=== PATIENT | female | born 1965 | race Caucasian/White ===

== ENCOUNTER 2021-08-06 19:25 | Emergency (ER) | payer SELFPAY ==
[~2021-08-06] VITALS: Ht 160 cm; Wt 54.4 kg
[2021-08-06] MEDS ORDERED: diphenhydrAMINE HCL 50 MG/ML VIAL ONE (19:52)
[2021-08-06] MEDS ORDERED: LORAZEPAM INJ 2 MG/ML VIAL ONE (19:53)
[2021-08-06] MEDS ORDERED: HALOPERIDOL LACTATE INJ 5 MG/ML VIAL ONE (19:53)
[2021-08-06] MEDS: diphenhydrAMINE HCL 50 MG/ML VIAL IM ONE (19:58)
[2021-08-06] MEDS: LORAZEPAM INJ 2 MG/ML VIAL IM ONE (19:58)
[2021-08-06] MEDS: HALOPERIDOL LACTATE INJ 5 MG/ML VIAL IM ONE (19:58)
--- NOTE | 2021-08-06 20:10 | NUR ---
PATIENT BIBRA 79 AND [employer] C/O BIZARRE BEHAVIOR. PATIENT WAS PEPPER SPRAYED AT RADHA. PATIETN IS A/O X 2-3, RR EVEN AND UNLABORED, NO SOB NOTED. 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 PATIENT NOT ANSWERING STAFF QUESTIONS AT THIS TIME.
--- NOTE | 2021-08-06 20:44 | NUR ---
NEGATIVE RESTORER AT BEDSIDE
[2021-08-06 20:51] LABS: BASOPHILS % (AUTO) 0.4 % (0.0-2.0); EOSINOPHILS % (AUTO) 0.9 % (0.0-6.0); HEMATOCRIT 37 % (33-45); HEMOGLOBIN 11.7 g/dL (11.5-14.8); LYMPHOCYTES # (AUTO) 1.4 K/uL (0.8-4.8); LYMPHOCYTES % (AUTO) 18.8 % (20.0-44.0); MEAN CORPUSCULAR HGB CONC 32 g/dl (31.0-36.0); MEAN CORPUSCULAR VOLUME 79 fL (82-100); MONOCYTES # (AUTO) 0.9 K/uL (0.1-1.30); MONOCYTES % (AUTO) 12.5 % (2.0-12.0); NEUTROPHILS # (AUTO) 4.9 K/uL (1.8-8.9); NEUTROPHILS % (AUTO) 67.4 % (43.0-81.0); PLATELET COUNT (AUTO) 202 K/uL (150-450); RED BLOOD CELL COUNT(AUTO) 4.64 MIL/uL (4.0-5.2); WHITE BLOOD COUNT (AUTO) 7.2 K/uL (4.3-11.0)
[2021-08-06 21:08] LABS: ALANINE AMINOTRANSFERASE 31 U/L (12-78); ALKALINE PHOSPHATASE 127 U/L (46-116); ASPARTATE AMINOTRANSFERASE 32 U/L (15-37); BILIRUBIN,DIRECT 0.1 mg/dL (0.0-0.2); BILIRUBIN,TOTAL 0.2 mg/dL (0.2-1.0); CALCIUM, SERUM 9.4 mg/dL (8.5-10.1); CARBON DIOXIDE 31 mmol/L (21-32); CHLORIDE 101 mmol/L (98-107); CREATININE 1.2 mg/dL (0.6-1.3); GLUCOSE 107 mg/dL (74-106); POTASSIUM 3.9 mmol/L (3.5-5.1); SODIUM SERUM 139 mmol/L (136-145); UREA NITROGEN, BLOOD 32 mg/dL (7-18)
[2021-08-06 21:37] LABS: ACETAMINOPHEN < 2 ug/ml (10-30); ALCOHOL, BLOOD < 3 mg/dL (0-0)
[2021-08-06] MEDS: IV NS 0.9% 1,000 ML BAG IV ONE (22:38)
--- NOTE | 2021-08-06 22:38 | NUR ---
URINE COLLECETED AND SENT TO LAB
[2021-08-06 23:20] LABS: BILIRUBIN,URINE Negative (NEGATIVE); COLOR,URINE YELLOW (YELLOW); LEUKOCYTE ESTERASE ,URINE Trace (NEGATIVE); NITRITE, URINE Negative (NEGATIVE); PROTEIN,URINE Negative (NEGATIVE); UGLUCOSE Negative (NEGATIVE); UROBILINOGEN,URINE 0.2 EU/dL (0.2)
[2021-08-06 23:23] LABS: BACTERIA,URINE Few /HPF (None Seen); SQUAMOUS EPITHELIAL CELL,UR Few /HPF (None Seen)
--- NOTE | 2021-08-07 | NUR ---
PATIENT IN BED SLEEPING, EASY TO AROSUE, VSS. PATIENT NOT STATING NAME AT THIS TIME.
[2021-08-07 05:44] VITALS: BP 136/72
--- NOTE | 2021-08-07 05:44 | NUR ---
Patient discharged to home in stable condition. Written and verbal after care instructions given. Patient verbalizes understanding of instruction.
== END 2021-08-07 05:45 | disposition home or self-care (01) ==
LOC: EDBD 19:43 → ER 19:43
DX: R46.1 Bizarre personal appearance (principal); Z77.098 Contact with and (suspected) exposure to other hazardous, chiefly nonmedicinal, chemicals; Z59.00 Homelessness unspecified
CPT/HCPCS: 36415; 80048; 80076; 80143; 80307; 80320; 81001; 84703; 85025; 96372 ×2; 99285; J1200; J1630; J2060; J7030; G0480